=== PATIENT | female | born 1995 | race American Indian/Alaskan Native ===

== ENCOUNTER 2016-06-27 02:25 | Emergency (ER) | payer MEDICAID ==
--- NOTE | 2016-06-27 04:39 | Emergency Department Report ---
ED Back Pain/Injury HPI - General Chief Complaint: Back Pain/Injury Stated Complaint: LOWER BACK PAIN Time Seen by Provider: 06/27/16 04:34 Source: patient, family, EMS Limitations: No Limitations - History of Present Illness Initial Comments: Patient here complaining in of low back pain 4 hours prior to coming to the emergency room she reports that is radiating down to the back of her legs. Patient reports urinary burning frequency or urgency. Denies any nausea or vomiting. Denies any fever or chills. Denies any back trauma. Denies any history of previous back injury. Denies any abdominal pain. Patient states she is 3 months with no STEAM ROOM ATTENDANT follow-up on not taking vitamin. She denies vaginal bleeding . She reports small she reports small amount of vaginal discharge. Denies any concerns for STDs. Pain to lower back is 5 out of 10. No loss of bowel or bladder function. Denies any numbness or tingling. Denies any fever or chills and she says she is able to tolerate fluids. Patient is 4, para 2 miscarriage 1 2 living children MD Complaint: back pain Onset/Timin -: hour(s) Similar Symptoms Previously: No Place: home Radiation: left leg, right leg Severity: moderate Severity scale (0 -10): 5 Quality: aching Consistency: constant Improves With: none Worsens With: none Context: other (patient weight urinary symptoms) Associated Symptoms: other (reports urinary burning, frequency and urgency.). denies: confusion, weakness, chest pain, numbness, difficulty walking, cough, diaphoresis, incontinence, fever/chills, constipation, headaches, abdominal pain , loss of appetite, malaise, nausea/vomiting, rash, seizure, shortness of breath , syncope Treatments Prior to Arrival: other medications - Related Data Previous Rx's Medication Instructions Recorded Last Taken Type Nitrofurantoin [place]/M-Cryst 100 mg PO Q12HR #14 capsule 06/27/16 Unknown Rx [Macrobid CAP] metroNIDAZOLE 0.75% [Vandazole 1 applicator VG QHS #1 tube 06/27/16 Unknown Rx 0.75% VAGINAL] Allergies Allergy/AdvReac Type Severity Reaction Status Date / Time No Known Allergies Allergy Verified 06/27/16 02:45 ED Review of Systems ROS: Stated complaint: LOWER BACK PAIN Other details as noted in HPI Comment: All other systems reviewed and negative Constitutional: denies: chills, fever, malaise ENT: denies: ear pain, throat pain, congestion Respiratory: no symptoms reported Cardiovascular: denies: chest pain, palpitations, edema, syncope Gastrointestinal: denies: abdominal pain, nausea, vomiting, diarrhea Genitourinary: urgency, dysuria, frequency, other (patient reports she is 3 months). denies: hematuria, discharge Musculoskeletal: back pain. denies: joint swelling, arthralgia, myalgia Skin: denies: rash Neurological: denies: headache, weakness, numbness, paresthesias, confusion, abnormal gait, vertigo ED Past Medical Hx - Past Medical History Previous Medical History?: No - Surgical History Past Surgical History?: No - Family History Family history: no significant - Social History Smoking Status: Current Every Day Smoker Substance Use Type: None - Medications Home Medications: Home Medications Medication Instructions Recorded Confirmed Last Taken Type Nitrofurantoin [place]/M-Cryst 100 mg PO Q12HR #14 capsule 06/27/16 Unknown Rx [Macrobid CAP] metroNIDAZOLE 0.75% [Vandazole 1 applicator VG QHS #1 tube 06/27/16 Unknown Rx 0.75% VAGINAL] ED Physical Exam - General Limitations: No Limitations General appearance: alert, in no apparent distress - Head Head exam: Present: atraumatic, normocephalic, normal inspection - Eye Eye exam: Present: normal appearance, PERRL, EOMI. Absent: periorbital swelling , periorbital tenderness Pupils: Present: normal accommodation - ENT ENT exam: Present: normal exam, normal orophraynx, mucous membranes moist, TM's normal bilaterally, normal external ear exam - Neck Neck exam: Present: normal inspection, full ROM. Absent: tenderness, meningismus, lymphadenopathy - Respiratory Respiratory exam: Present: normal lung sounds bilaterally. Absent: respiratory distress, wheezes, rales, rhonchi, stridor, chest wall tenderness - Cardiovascular Cardiovascular Exam: Present: normal rhythm, tachycardia, normal heart sounds - GI/Abdominal GI/Abdominal exam: Present: soft, normal bowel sounds. Absent: distended, tenderness, guarding, rebound, rigid - External exam: Present: normal external exam. Absent: erythema, swelling, lesions, lacerations, ecchymosis, bleeding Speculum exam: Present: vaginal discharge, cervical discharge. Absent: erythema , vaginal bleeding, foreign body, tissue, laceration Bi-manual exam: Present: normal bi-manual exam. Absent: cervical motion tendernes, adnexal tenderness, adnexal mass, uterine enlargement, uterine tenderness - Expanded Exam Expanded Female exam: Absent: vaginal laceration, tissue present in vagina, herpetic lesions, vulvar erythema, vulvar tenderness, foreign body External exam: Present: normal Amniotic fluid: Present: none Speculum exam: Present: cervical OS closed - Extremities Exam Extremities exam: Present: normal inspection, full ROM, normal capillary refill. Absent: tenderness, pedal edema, joint swelling, calf tenderness - Back Exam Back exam: Present: normal inspection, full ROM. Absent: tenderness, CVA tenderness (R), CVA tenderness (L), muscle spasm, paraspinal tenderness, vertebral tenderness, rash noted - Expanded Back Exam Expanded Back exam: Absent: saddle anesthesia Back exam: Negative Straight Leg Raising: Left, Right - Neurological Exam Neurological exam: Present: alert, oriented X3, normal gait - Expanded Neurological Exam Expanded Neurological exam: Absent: innattentive, memory loss-remote event, memory loss- recent event, ataxia, receptive aphasia, expressive aphasia, total aphasia, tremor, protecting the airway Patient oriented to: Present: person, place, time Speech: Present: fluid speech Cranial nerves: EOM's Intact: Normal, Gag Reflex: Normal, Nystagmus: Normal, Facial Sensation: Normal Cerebellar function: Romberg: Normal Upper motor neuron: Pronator Drift: Normal, Sensory Extinction: Normal Sensory exam: Upper Extremity Light Touch: Normal, Upper Extremity Temperature: Normal, Lower Extremity Light Touch: Normal, Lower Extremity Temperature: Normal Motor strength exam: RUE: 5, LUE: 5, RLE: 5, LLE: 5 DTR: bicep (R): 2+, bicep (L): 2+, tricep (R): 2+, tricep (L): 2+, knee (R): 2+ , knee (L): 2+, ankle (R): 2+, ankle (L): 2+ Best Eye Response ([place]): (4) open spontaneously Best Motor Response (Chris): (6) obeys commands Best Verbal Response ([place]): (5) oriented [place] Total: 15 - Psychiatric Psychiatric exam: Present: normal affect, normal mood - Skin Skin exam: Present: warm, dry, normal color. Absent: rash ED Course Vital Signs 06/27/16 02:45 Temperature 98.9 F Pulse Rate 106 H Respiratory 20 Rate Blood Pressure 128/74 [Right] O2 Sat by Pulse 100 Oximetry Vital Signs 06/27/16 06/27/16 02:45 06:32 Temperature 98.9 F 98.6 F Pulse Rate 106 H 98 H Respiratory 20 20 Rate Blood Pressure 128/74 112/58 [Right] O2 Sat by Pulse 100 99 Oximetry - Reevaluation(s) Reevaluation #1: 06/27/16 04:52 Patient given Tylenol 650 mg in emergency room and awaiting lab results. 06/27/16 06:20 Patient received 1 L of normal saline IV and second liter infusing at present. Her sodium is at 129 because she said she is not eating enough due to nausea. Patient here in came back positive for bacterial infection. She was given Rocephin 1 g IV without any adverse reaction. Patient also given Zofran 4 mg IV with her second liter of IV fluid. Ultrasound done at bedside by Dr. Espinosa fetus in utero without any abnormality noted per Dr. Espinosa. Reevaluation #2: 06/27/16 06:49 Patient stable she says she is feeling much better after 2 L of IV fluid - Procedure Description Procedures done: Bedside ultrasound done by Dr. Espinosa. He reported that fetus in usual and no abnormalities seen. ED Medical Decision Making - Lab Data Result diagrams: 06/27/16 04:59 06/27/16 04:59 Lab Results 06/27/16 06/27/16 06/27/16 Range/Units 04:59 04:59 04:59 WBC 5.2 (4.5-11.0) K/mm3 RBC 4.25 (3.65-5.03) M/mm3 Hgb 11.5 (10.1-14.3) gm/dl Hct 34.8 (30.3-42.9) % MCV 82 (79-97) fl MCH 27 L (28-32) pg MCHC 33 (30-34) % RDW 13.7 (13.2-15.2) % Plt Count 130 L (140-440) K/mm3 Lymph % (Auto) 6.1 L (13.4-35.0) % Steele % (Auto) 9.3 H (0.0-7.3) % Eos % (Auto) 0.2 (0.0-4.3) % Baso % (Auto) 0.2 (0.0-1.8) % Lymph # 0.3 L (1.2-5.4) K/mm3 Steele # 0.5 (0.0-0.8) K/mm3 Eos # 0.0 (0.0-0.4) K/mm3 Baso # 0.0 (0.0-0.1) K/mm3 Seg Neutrophils % 84.2 H (40.0-70.0) % Seg Neutrophils # 4.4 (1.8-7.7) K/mm3 Sodium 129 L (137-145) mmol/L Potassium 3.7 (3.6-5.0) mmol/L Chloride 96.2 L (98-107) mmol/L Carbon Dioxide 18 L (22-30) mmol/L Anion Gap 19 mmol/L BUN 5 L (7-17) mg/dL Creatinine 0.5 L (0.7-1.2) mg/dL Estimated GFR > 60 ml/min BUN/Creatinine Ratio 10.00 % Glucose 93 (65-100) mg/dL Calcium 8.6 (8.4-10.2) mg/dL HCG, Quant 80777 H (0-4) mIU/mL Urine Color (Yellow) Urine Turbidity (Clear) Urine pH (5.0-7.0) Ur Specific [place] (1.003-1.030) Urine Protein (Negative) mg/dL Urine Glucose (UA) (Negative) mg/dL Urine Ketones (Negative) mg/dL Urine Blood (Negative) Urine Nitrite (Negative) Urine Bilirubin (Negative) Urine Urobilinogen (<2.0) mg/dL Ur Leukocyte Esterase (Negative) Urine WBC (Auto) (0.0-6.0) /HPF Urine RBC (Auto) (0.0-6.0) /HPF U Epithel Cells (Auto) (0-13.0) /HPF Urine Bacteria (Auto) (Negative) /HPF Amorphous Crystals Hyaline Casts /LPF Urine Mucus /HPF Urine HCG, Qual (Negative) 06/27/16 Range/Units Unknown WBC (4.5-11.0) K/mm3 RBC (3.65-5.03) M/mm3 Hgb (10.1-14.3) gm/dl Hct (30.3-42.9) % MCV (79-97) fl MCH (28-32) pg MCHC (30-34) % RDW (13.2-15.2) % Plt Count (140-440) K/mm3 Lymph % (Auto) (13.4-35.0) % Steele % (Auto) (0.0-7.3) % Eos % (Auto) (0.0-4.3) % Baso % (Auto) (0.0-1.8) % Lymph # (1.2-5.4) K/mm3 Steele # (0.0-0.8) K/mm3 Eos # (0.0-0.4) K/mm3 Baso # (0.0-0.1) K/mm3 Seg Neutrophils % (40.0-70.0) % Seg Neutrophils # (1.8-7.7) K/mm3 Sodium (137-145) mmol/L Potassium (3.6-5.0) mmol/L Chloride (98-107) mmol/L Carbon Dioxide (22-30) mmol/L Anion Gap mmol/L BUN (7-17) mg/dL Creatinine (0.7-1.2) mg/dL Estimated GFR ml/min BUN/Creatinine Ratio % Glucose (65-100) mg/dL Calcium (8.4-10.2) mg/dL HCG, Quant (0-4) mIU/mL Urine Color Yellow (Yellow) Urine Turbidity Slightly-cloudy (Clear) Urine pH 6.0 (5.0-7.0) Ur Specific [place] 1.024 (1.003-1.030) Urine Protein 30 mg/dl (Negative) mg/dL Urine Glucose (UA) Neg (Negative) mg/dL Urine Ketones 20 (Negative) mg/dL Urine Blood Sm (Negative) Urine Nitrite Neg (Negative) Urine Bilirubin Neg (Negative) Urine Urobilinogen 4.0 (<2.0) mg/dL Ur Leukocyte Esterase Mod (Negative) Urine WBC (Auto) 29.0 H (0.0-6.0) /HPF Urine RBC (Auto) 4.0 (0.0-6.0) /HPF U Epithel Cells (Auto) 19.0 H (0-13.0) /HPF Urine Bacteria (Auto) 1+ (Negative) /HPF Amorphous Crystals 1+ Hyaline Casts 2 /LPF Urine Mucus 2+ /HPF Urine HCG, Qual Positive A (Negative) Urine culture pending. Gonorrhea and Chlamydia pending Prep reveals - Radiology Data Radiology results: image reviewed interpreted by me: Bedside ultrasound done by Dr. Espinosa. She reports no abnormality and fetus is in the uterus - Medical Decision Making ED course: Patient urine with positive bacteria, positive and sm amount of blood. She has some epithelial cells more than likely from contamination. Urine culture is pending, pelvic exam done and gonorrhea and chlamydia test is pending. Wet prep revealed revealed less than 20% clues cells, no trichomonas and no yeast. Patient in her urine also showed that she has 20 ketones which suggest mild dehydration.Patient received IV fluid 2 L and emergency room normal saline. Her sodium is 129 and I discussed with him that she's been have to increase her oral intake. I suspect 2 L of IV fluid normal saline will bring sodium and chloride back to normal levels. Patient given Rocephin 1 g IV to cover urinary tract infection. She is also given Zofran 4 mg IV with a second liter of IV fluid. Patient that was also 190 with no signs of bleeding. CBC shows normal white count without any anemia. Patient does not recall having low platelets in the past. I discussed with her her diagnosis and treatment plan and she is in agreement. The patient that she does have a primary care physician or does not have any insurance she needs to follow-up with [facility] walk-in also managed her . I told her that she will need to start on vitamin and start care through STEAM ROOM ATTENDANT. We'll refer her to my STEAM ROOM ATTENDANT who is seed corn manager production. She is no longer having any nausea and able to drink cranberry juice in the room without vomiting. She says she felt better. No further back pain at present. discharged home with prescription for Macrobid And MetroGel applicator Critical care attestation.: If time is entered above; I have spent that time in minutes in the direct care of this critically ill patient, excluding procedure time. ED Disposition Clinical Impression: Hyponatremia, Thrombocytopenia during , Nausea alone, Vaginal discharge, Back pain during , Dysuria, Bacterial vaginosis, Dehydration , mild Qualifiers: Weeks of gestation: unspecified Qualified Code(s): Z33.1 - state, incidental Acute cystitis during Qualifiers: Trimester: first trimester Qualified Code(s): O23.11 - Infections of bladder in , first trimester Disposition: DISCHARGED TO HOME OR SELFCARE Is pt being admited?: No Does the pt Need Aspirin: No Condition: Stable Instructions: Morning Sickness (ED), (ED), Back Pain (ED), Hyponatremia (ED), Urinary Tract Infection in Women (ED), Dysuria (ED), Thrombocytopenia (ED), Bacterial Vaginosis (ED), Dehydration (ED) Additional Instructions: Please follow-up with [facility] for management of. Platelets and follow up for low sodium. [facility] can also manage . Please call this morning to schedule an appointment. You can also call my STEAM ROOM ATTENDANT who is the STEAM ROOM ATTENDANT service seed corn manager production for the hospital today. Call to schedule an appointment. Please ensure that he drink plenty of fluids to prevent dehydration Using also drinking cranberry juice which will help for urinary tract infection and also your low sodium. Take all antibiotic as prescribed for urinary tract infection Prescriptions: metroNIDAZOLE 0.75% [Vandazole 0.75% VAGINAL] 1 applicator VG QHS #1 tube Nitrofurantoin Steele/M-Cryst [Macrobid CAP] 100 mg PO Q12HR #14 capsule Referrals: [facility] [Outside] - 06/28/16 [facility] [Provider Group] - 06/28/16 Forms: Work/School Release Form(ED), Accompanied Note, STI Treatment and Prevention
[2016-06-27] MEDS ORDERED: TYLENOL PO ONE (04:40)
[2016-06-27] MEDS ORDERED: NACL 0.9% 1000 ML 1,000 ML IV ONE ×2 (05:07→06:01)
[2016-06-27 05:14] LABS: Basophils % (Auto) 0.2 % (0.0-1.8); Eosinophils % (Auto) 0.2 % (0.0-4.3); Hematocrit 34.8 % (30.3-42.9); Hemoglobin 11.5 gm/dl (10.1-14.3); Mean Corpuscular HGB Conc 33 % (30-34); Mean Corpuscular Hemoglobin 27 pg (28-32); Mean Corpuscular Volume 82 fl (79-97); Platelet Count 130 K/mm3 (140-440); Red Blood Count 4.25 M/mm3 (3.65-5.03); Red Cell Distribution Width 13.7 % (13.2-15.2); White Blood Count 5.2 K/mm3 (4.5-11.0)
[2016-06-27 05:24] LABS: Bacteria,Urine 1+ /HPF (Negative); Bilirubin,Urine NEG (Negative); Blood,Urine SM (Negative); Ketones,Urine 20 mg/dL (Negative); Leukocyte Esterase,Urine MOD (Negative); Mucus,Urine 2+ /HPF; Nitrite,Urine NEG (Negative)
[2016-06-27 05:28] LABS: Anion Gap 19 mmol/L; Blood Urea Nitrogen 5 mg/dL (7-17); Calcium 8.6 mg/dL (8.4-10.2); Carbon Dioxide 18 mmol/L (22-30); Chloride 96.2 mmol/L (98-107); Glucose 93 mg/dL (65-100); Potassium 3.7 mmol/L (3.6-5.0); Sodium 129 mmol/L (137-145)
[2016-06-27] MEDS ORDERED: ROCEPHIN IV STA (06:01)
[2016-06-27] MEDS ORDERED: ZOFRAN IV ONE (06:02)
[2016-06-27 06:33] VITALS: BP 112/58
== END 2016-06-27 07:29 | disposition home or self-care (01) ==
LOC: ED 02:25
DX: O99.119 Other diseases of the blood and blood-forming organs and certain disorders involving the immune mechanism complicating pregnancy, unspecified trimester (principal); O23.599 Infection of other part of genital tract in pregnancy, unspecified trimester; N76.0 Acute vaginitis; O99.280 Endocrine, nutritional and metabolic diseases complicating pregnancy, unspecified trimester; Z3A.00 Weeks of gestation of pregnancy not specified; E87.1 Hypo-osmolality and hyponatremia; N30.00 Acute cystitis without hematuria; O99.330 Smoking (tobacco) complicating pregnancy, unspecified trimester
CPT/HCPCS: 36415; 80048; 81001; 81025; 84702; 85025; 87086; 87210; 87591; 96361; 96374; 96375; 99284; J0696; J2405; J7030

== ENCOUNTER 2016-12-23 18:11 | Inpatient (IN) | payer MEDICAID ==
[2016-12-23] MEDS ORDERED: BRETHINE IVP PRN (21:52)
[2016-12-23] MEDS ORDERED: ePHEDrine SULFATE IV PRN (21:52)
[2016-12-23] MEDS ORDERED: MINERAL OIL PO PRN (21:52)
[2016-12-23] MEDS ORDERED: BRETHINE SUB-Q PRN (21:52)
[2016-12-23] MEDS ORDERED: STADOL IV PRN (21:52)
[2016-12-23] MEDS ORDERED: SUBLIMAZE IV PRN (21:52)
[2016-12-23] MEDS ORDERED: XYLOCAINE 2% INFILTRATI ONE (21:52)
[2016-12-23] MEDS ORDERED: PITOCin/NS 20 UNIT/1000ML DRIP 20 UNITS/1,000 ML BAG IV SCH (22:00)
[2016-12-23] MEDS ORDERED: PITOCin/NS 30 UNIT/500ML 30 UNITS/500 ML BAG IV SCH ×2 (22:00)
--- NOTE | 2016-12-23 22:00 | History and Physical Report ---
History of Present Illness Date of examination: 12/23/16 Date of admission: 12/23/16 21:37 Chief complaint: 21yo A1 at 40wk EGA admitted in labor with leaking membranes. O pos, Rub Imm, GBS neg. History of present illness: Remainder of H&P from [facility] and confirmed today. 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 Weight (lb): 182 BMI: 28.6 Pre- Weight: 175 BP: 112/ 60 mm Hg Ur. Protein: negative Ur. 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 no EDC Calculations EDC Confirmation: 12/17/2016 Gestational Age: 18 3/7 weeks Past History : 4 Term Births: 2 Living Children: 2 Para: 2 Aborta: 1 Spont. Ab: 1 # 1 Delivery date: 2009 Weeks Gestation: term labor: no Delivery type: Anesthesia type: none Delivery location: [place] Sex: Female weight: 6# Comments: no complications # 2 Delivery date: 2010 Weeks Gestation: term labor: no Delivery type: Anesthesia type: epidural Delivery location: alpha Sex: Male weight: 6# Comments: no complications Past Medical History: Negative Past Medical History Past Surgical History: negative Past Medical History Anesthesia Complications: negative Anemia: negative Autoimmune Disorder: negative Bleeding Disorder: negative Blood Transfusions: negative Breast Disease: negative Diabetes: negative Heart Disease: negative Hypertension: negative Hepatitis/Liver Disease: negative Kidney Disease/UTI: negative Neurologic/Epilepsy/Migraines: negative Phlebitis/Varicosities: negative Psychiatric: negative Pulmonary Disease/Asthma: negative Thyroid Disease: negative Hospitalizations: negative Surgery (Non-director cardiac): negative Abnormal PAP: negative CONOR Exposure: negative Infertility: negative Uterine Anomaly: negative Uterine Surgery (not C/S): negative Other Gynecologic Problems: negative Infection History Hx of STD: chlamydia HIV Risk Eval: no Hepatitis B Risk Eval: low risk Personal hx. of genital herpes: no Partner hx. of genital herpes: no Rash, Viral, or Febrile illness since last LMP? no Varicella/Chicken Pox Status: Unknown Infection History Comments: dx at [facility] 06/27/16 - treated at [facility] Genetic History Congenital Heart Defect: Mom: no Dad: unknown Jinny Disease: Mom: no Dad: unknown Thalassemia Mom: no Dad: unknown Neural Tube Defect Mom: no Dad: unknown Down's Syndrome Mom: no Dad: unknown López-Sachs Mom: no Dad: unknown Sickle Cell Disease/Trait Mom: no Dad: unknown Hemophilia Mom: no Dad: unknown Muscular Dystrophy Mom: no Dad: unknown Cystic Fibrosis Mom: no Dad: unknown [place] Chorea Mom: no Dad: unknown Mental Retardation Mom: no Dad: unknown Fragile X Mom: no Dad: unknown Other Genetic/Chromosomal Disorder Mom: no Dad: unknown Child w/other defect Mom: no Dad: unknown Enviromental Exposures Xray Exposure: no Medication, drug, or alcohol use since LMP: no Chemical/Other Exposure: no Exposure to Cat Liter: no Hx of Parvovirus (Fifth Disease): no Occupational Exposure to Children: none Active Medications (reviewed today): None Current Allergies: No known allergies Laboratory Results Routine Urinalysis Leukocytes: negative Nitrite: negative Urobilinogen: negative Protein: negative Blood: negative Ketone: negative Bilirubin: negative Glucose: negative Urine HCG: positive Review of Systems General Denies fever, chills, sweats, anorexia, fatigue, weakness, malaise, weight loss and sleep disorder. Denies nausea, vomiting, headache, swelling of legs, abdominal pain, vaginal discharge, vaginal bleeding and contractions. Denies vaginal discharge, incontinence, dysuria, hematuria, urinary frequency, amenorrhea, menorrhagia, abnormal vaginal bleeding, pelvic pain, genital sores, decreased libido, painful periods, painful sex, urinary urgency, hot flashes, vaginal dryness, vaginal itching and vaginal odor. CV Denies chest pains, palpitations, syncope, dyspnea on exertion, orthopnea, PND and peripheral edema. Resp Denies cough, dyspnea at rest, excessive sputum, hemoptysis, wheezing and pleurisy. GI Denies nausea, vomiting, diarrhea, constipation, change in bowel habits, abdominal pain, melena, hematochezia, jaundice, gas/bloating, indigestion/ heartburn, dysphagia and odynophagia. Endo Denies cold intolerance, heat intolerance, polydipsia, polyphagia, polyuria and unusual weight change. Breast Denies left breast lump, right breast lump, nipple discharge, bloody discharge from nipple, breast pain, abnormal mammogram and breast enlargement. MS Denies back pain, joint pain, joint swelling, muscle cramps, muscle weakness, stiffness, arthritis, sciatica, restless legs, leg pain at night and leg pain with exertion. Derm Denies rash, itching, dryness and suspicious lesions. Neuro Denies paralysis, paresthesias, headache, seizures, tremors, vertigo, transient blindness, frequent falls, frequent headaches and difficulty walking. Psych Denies depression, anxiety, irritability and mood swings. Eyes Denies blurring, diplopia, irritation, discharge, vision loss, eye pain and photophobia. ENT Denies earache, ear discharge, tinnitus, decreased hearing, nasal congestion, nosebleeds, sore throat and hoarseness. Allergy Denies urticaria, allergic rash, hay fever and recurrent infections. Heme Denies abnormal bruising, bleeding and enlarged lymph nodes. 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 Fundal Ht: 18w Presentation: vertex FHT: + activity: + Flowsheet View for Follow-up Visit Estimated weeks of gestation: 18 3/7 Weight: 182 Blood pressure: 112 / 60 Urine protein: negative Urine glucose: negative Urine nitrite: negative Fundal height: 18w FHR: + position: vertex Infant's Physician: None Past History - Obstetrical History : 4 Medications and Allergies Allergies Allergy/AdvReac Type Severity Reaction Status Date / Time No Known Allergies Allergy Verified 06/27/16 02:45 Home Medications Medication Instructions Recorded Confirmed Last Taken Type Nitrofurantoin [place]/M-Cryst 100 mg PO Q12HR #14 capsule 06/27/16 Unknown Rx [Macrobid CAP] metroNIDAZOLE 0.75% [Vandazole 1 applicator VG QHS #1 tube 06/27/16 Unknown Rx 0.75% VAGINAL] Active Meds: Active Medications Butorphanol Tartrate (Stadol) 2 mg IV Q2H PRN PRN Reason: Pain , Severe (7-10) Ephedrine Sulfate (Ephedrine Sulfate) 10 mg IV Q2M PRN PRN Reason: Hypotension Stop: 12/23/16 21:57 Fentanyl (Sublimaze) 100 mcg IV Q2H PRN PRN Reason: Labor Pain Lactated Ringer's (Lactated Ringers) 1,000 mls @ 125 mls/hr IV DIRECT MOI Oxytocin/Sodium Chloride (Pitocin/Ns 20 Unit/1000ml Drip) 20 units in 1,000 mls @ 125 mls/hr IV DIRECT MOI Lidocaine (Xylocaine 2%) 20 ml INFILTRATI ONCE ONE Stop: 12/23/16 21:53 Mineral Oil (Mineral Oil) 30 ml PO QHS PRN PRN Reason: Constipation - Vital Signs Vital signs: Vital Signs Temp Pulse Resp BP Pulse Ox 98.1 F 80 18 114/75 98 12/23/16 18:35 12/23/16 18:35 12/23/16 18:35 12/23/16 18:35 12/23/16 18:35 Temp Pulse Resp BP Pulse Ox 98.1 F 92 H 18 114/75 98 12/23/16 18:35 12/23/16 20:02 12/23/16 18:35 12/23/16 18:41 12/23/16 20:02 Results All other labs normal.
[2016-12-23] MEDS: LACTATED RINGERS 1,000 ML IV SCH (23:18)
[2016-12-23 23:38] LABS: Hematocrit 31.6 % (30.3-42.9); Hemoglobin 10.3 gm/dl (10.1-14.3); Mean Corpuscular HGB Conc 33 % (30-34); Mean Corpuscular Hemoglobin 26 pg (28-32); Mean Corpuscular Volume 81 fl (79-97); Platelet Count 172 K/mm3 (140-440); Red Blood Count 3.92 M/mm3 (3.65-5.03); Red Cell Distribution Width 13.4 % (13.2-15.2); White Blood Count 9.2 K/mm3 (4.5-11.0)
[2016-12-24] MEDS: LACTATED RINGERS 1,000 ML IV SCH ×2 (00:22→01:37)
[2016-12-24] MEDS ORDERED: ePHEDrine SULFATE ONE (00:56)
[2016-12-24] MEDS ORDERED: ePHEDrine SULFATE IV PRN (01:23)
[2016-12-24] MEDS ORDERED: NARCAN 2 MG/2 ML IV PRN (01:23)
--- NOTE | 2016-12-24 01:23 | Anesthesia Consultation ---
Anesthesia Consult and Med Hx Date of service: 12/24/16 - Airway Anesthetic Teeth Evaluation: Good ROM Head & Neck: Adequate Mental/Hyoid Distance: Adequate Mallampati Class: Class II Intubation Access Assessment: Good - Pulmonary Exam CTA: Yes - Cardiac Exam Cardiac Exam: No Murmur - Pre-Operative Health Status ASA Pre-Surgery Classification: ASA2 Proposed Anesthetic Plan: Epidural - Pulmonary Hx Asthma: No COPD: No Hx Pneumonia: No - Cardiovascular System Hx Hypertension: No - Central Nervous System Hx Seizures: No Hx Psychiatric Problems: No - Endocrine Hx Renal Disease: No Hx End Stage Renal Disease: No Hx Hypothyroidism: No Hx Hyperthyroidism: No - Hematic Hx Anemia: No Hx Sickle Cell Disease: No - Other Systems Hx Alcohol Use: No
[2016-12-24] MEDS ORDERED: fentaNYL-BUPIV 2 MCG/ML-0.125% 200 MCG/100 ML BAG EPIDURAL SCH (02:00)
[2016-12-24] MEDS ORDERED: PHENERGAN PR PRN (04:07)
[2016-12-24] MEDS ORDERED: BENADRYL PO PRN (04:07)
[2016-12-24] MEDS ORDERED: LANSINOH TP PRN (04:07)
[2016-12-24] MEDS ORDERED: ZOFRAN IV PRN (04:07)
[2016-12-24] MEDS ORDERED: MILK OF MAGNESIA PO PRN (04:07)
[2016-12-24] MEDS ORDERED: PHENERGAN PO PRN (04:07)
[2016-12-24] MEDS ORDERED: TUCKS PAD TP PRN (04:07)
[2016-12-24] MEDS ORDERED: DULCOLAX PR PRN (04:07)
[2016-12-24] MEDS ORDERED: TYLENOL PO PRN (04:07)
--- NOTE | 2016-12-24 04:13 | Procedure Note ---
OB Delivery Note - Delivery Date of Delivery: 12/24/16 Surgeon: KLAUDIA REYES Estimated blood loss: 300cc - Vaginal Delivery presentation: vertex Delivery position: OA Intrapartum events: mult.variable deceleratio Delivery induction: none Delivery monitor: external FHT, external uterine, internal FHT, internal uterine Route of delivery: Delivery placenta: spontaneous Delivery cord: 3 umbilical vessels Episiotomy: none Delivery laceration: none Anesthesia: epidural - Infant A at 1 minute: 8 (6#8oz) at 5 minutes: 9 Infant Gender: Male
[2016-12-24] MEDS ORDERED: SODIUM CHLORIDE FLUSH SYRINGE 10 ML IV PRN (05:00)
[2016-12-24] MEDS: MOTRIN PO SCH ×4 (06:40→23:42)
[2016-12-24 17:01] LABS: Hematocrit 28.3 % (30.3-42.9); Hemoglobin 9.4 gm/dl (10.1-14.3)
[2016-12-25] MEDS: MOTRIN PO SCH ×2 (05:29→11:56)
[2016-12-25] MEDS ORDERED: BOOSTRIX IM ONE (06:00)
--- NOTE | 2016-12-25 07:14 | Discharge Summary ---
Providers - Providers Date of Admission: 12/23/16 21:37 Date of discharge: 12/25/16 (pt desires d/c Depo for BC) Attending physician: KLAUDIA REYES Primary care physician: KLAUDIA REYES Hospitalization Reason for admission: active labor Delivery: Episiotomy: none Laceration: none Incision: normal, dry, intact Other procedures: none complications: none Discharge diagnosis: IUP at term delivered [place] baby: male Hospital course: uncomplicated vaginal delivery Pt w/o complaint VSS FF below umb Lochia small perineum intact H&H 12/19 drop r/ t blood loss from delivery No sx of anemia. Doing well s/p vag delivery P: d/c today with instructions RTO 1 week for circ and 4 weeks for PP care. RX provided Condition at discharge: Good Disposition: DC-01 TO HOME OR SELFCARE - Discharge Diagnoses (1) Spontaneous vaginal delivery Status: Acute Comment: rto 4 weeks for PP care Plan - Discharge Medications Prescriptions: Ibuprofen [Motrin 600 MG tab] 600 mg PO Q8H PRN #30 tablet PRN Reason: Pain Lidocain2.5%/Prilocai2.5% [Emla] 5 gm TP 1XW #1 tube - Provider Discharge Summary Activity: routine, no sex for 6 weeks, no heavy lifting 4 weeks, no strenuous exercise Diet: routine Instructions: routine Additional instructions: [] Smoking cessation referral if applicable(refer to patient education folder for contact #) [] Refer to [facility] Booklet Call your doctor immediately for: * Fever > 100.5 * Heavy vaginal bleeding ( >1 pad per hour) * Severe persistent headache * Shortness of breath * Reddened, hot, painful area to leg or breast * Drainage or odor from incision. * Keep incision clean and dry at all times and follow doctor's instructions regarding bathing/showering - Follow up plan Follow up: KLAUDIA REYES MD [Primary Care Provider] - 7 Days (Congratulations! Please call [phone] to schedule your visit in 4 weeks and your son's circumcision in 1 week. Bring the EMLA cream with you to his visit. Take medications as prescribed. Call with concerns.)
[2016-12-25] MEDS ORDERED: DEPO-PROVERA (CONTRACEPTION) IM NR (08:00)
--- NOTE | 2016-12-25 10:06 | Progress Note ---
Subjective Date of service: 12/25/16 Interval history: 1st day after normal vaginal delivery Patient is in the bed, comfortable. pain is well controlled with pain meds. Ambulated well, no residual neurological deficit. No anesthesia complications Objective - Constitutional Vitals: Vital Signs - 12hr 12/25/16 00:30 Temperature 98.2 F Pulse Rate 78 Respiratory 18 Rate Blood Pressure 116/63 [Left] - Labs CBC & Chem 7: 12/24/16 16:09 Labs: Abnormal lab results 12/24/16 Range/Units 16:09 Hgb 9.4 L (10.1-14.3) gm/dl Hct 28.3 L (30.3-42.9) %
[2016-12-25 10:55] VITALS: BP 118/66
[2016-12-25] MEDS ORDERED: Fluarix Quad 2017-2018(36 MOS+) IM ONE (15:00)
== END 2016-12-25 16:23 | disposition home or self-care (01) | DRG 775 ==
LOC: TRG 18:11 → LD 21:37 → TRG 21:37 → OB 12-24 05:58
PROVIDERS: ADMIT Obstetrics & Gynecology; ATTEND Obstetrics & Gynecology
PROC: 10E0XZZ Delivery of Products of Conception, External Approach (ICD-10-PCS; principal; 2016-12-24)
PROC: 3E0234Z Introduction of Serum, Toxoid and Vaccine into Muscle, Percutaneous Approach (ICD-10-PCS; 2016-12-24)
PROC: 3E0R3BZ Introduction of Anesthetic Agent into Spinal Canal, Percutaneous Approach (ICD-10-PCS; 2016-12-24)
PROC: 00HU33Z Insertion of Infusion Device into Spinal Canal, Percutaneous Approach (ICD-10-PCS; 2016-12-24)
DX: O76 Abnormality in fetal heart rate and rhythm complicating labor and delivery (principal); Z3A.40 40 weeks gestation of pregnancy; Z37.0 Single live birth; Z23 Encounter for immunization
CPT/HCPCS: 36415; 85014; 85018; 85027; 86592; 86850; 86900; 86901; 90471; 90686; 90715; J1050; J2590; J7120

== ENCOUNTER 2019-04-19 15:32 | Emergency (ER) | payer MEDICAID ==
[2019-04-19 16:38] VITALS: BP 125/71
--- NOTE | 2019-04-19 17:53 | Emergency Department Report ---
Blank Doc - Documentation Documentation: 24-year-old female that presents with abdominal pain and nausea. This initial assessment/diagnostic orders/clinical plan/treatment(s) is/are subject to change based on patient's health status, clinical progression and re- assessment by fellow clinical providers in the ED. Further treatment and workup at subsequent clinical providers discretion. Patient/guardians urged not to elope from the ED as their condition may be serious if not clinically assessed and managed. Initial orders include: 1- Patient sent to [facility] for further evaluation and treatment 2-labs 3- UA
[2019-04-19 18:12] LABS: Basophils % (Auto) 0.5 % (0.0-1.8); Eosinophils # (Auto) 0.1 K/mm3 (0.0-0.4); Eosinophils % (Auto) 1.3 % (0.0-4.3); Hematocrit 37.4 % (30.3-42.9); Hemoglobin 12.2 gm/dl (10.1-14.3); Lymphocytes # (Auto) 2.6 K/mm3 (1.2-5.4); Lymphocytes % (Auto) 38.8 % (13.4-35.0); Mean Corpuscular HGB Conc 33 % (30-34); Mean Corpuscular Volume 84 fl (79-97); Monocytes # (Auto) 0.5 K/mm3 (0.0-0.8); Monocytes % (Auto) 6.9 % (0.0-7.3); Platelet Count 236 K/mm3 (140-440); Red Blood Count 4.46 M/mm3 (3.65-5.03)
[2019-04-19 18:26] LABS: Alanine Aminotransferase 9 units/L (7-56); Albumin 4.3 g/dL (3.9-5); BUN/Creatinine Ratio 11; Blood Urea Nitrogen 8 mg/dL (7-17); Calcium 9.3 mg/dL (8.4-10.2); Hemolysis Index 2
[2019-04-19 18:53] LABS: Bilirubin,Urine NEG (Negative); Blood,Urine NEG (Negative); Color,Urine Yellow (Yellow); Protein,Urine <15 mg/dL mg/dL (Negative); Urobilinogen,Urine < 2.0 mg/dL (<2.0)
[2019-04-19] MEDS ORDERED: AZITHROMYCIN 250 MG TAB PO ONE (21:30)
[2019-04-19] MEDS ORDERED: LIDOCAINE-MPF (1%) 10 MG/1 ML VIAL 5 ML INFILTRATI ONE (21:30)
--- NOTE | 2019-04-19 21:36 | Emergency Department Report ---
ED Female HPI - General Chief complaint: Abdominal Pain Stated complaint: ABD PAIN HEADACHE Time Seen by Provider: 04/19/19 17:52 Source: patient Mode of arrival: Ambulatory Limitations: No Limitations - History of Present Illness Initial comments: Patient is a 24-year-old -[place] female who presents for vaginal discharge white, thick , malodorous x 3 days. Patient denies nausea vomiting denies pelvic pain there is mild back pain and cramping. Last menstrual cycle one week ago. Patient states concern for STD. There are no exacerbating or relieving factors. MD Complaint: vaginal discharge, possible STD Onset/Timin -: days(s) Location: suprapubic Radiation: non-radiating Severity: moderate Severity scale (0 -10): 4 Quality: cramping, burning Consistency: constant Improves with: none Worsens with: none Are you Now?: No Last Menstrual Period: 04/12/19 EDC: 01/17/20 Associated Symptoms: vaginal discharge - Related Data Sexually active: Yes Previous Rx's Medication Instructions Recorded Last Taken Type Nitrofurantoin [place]/M-Cryst 100 mg PO Q12HR #14 capsule 06/27/16 Unknown Rx [Macrobid CAP] metroNIDAZOLE 0.75% [Vandazole 1 applicator VG QHS #1 tube 06/27/16 Unknown Rx 0.75% VAGINAL] Ibuprofen [Motrin 600 MG tab] 600 mg PO Q8H PRN #30 tablet 12/24/16 Unknown Rx Lidocain2.5%/Prilocai2.5% [Emla] 5 gm TP 1XW #1 tube 12/24/16 Unknown Rx metroNIDAZOLE [Flagyl] 500 mg PO BID 10 Days #20 tab 04/19/19 Unknown Rx Allergies Allergy/AdvReac Type Severity Reaction Status Date / Time No Known Allergies Allergy Verified 06/27/16 02:45 ED Review of Systems ROS: Stated complaint: ABD PAIN HEADACHE Other details as noted in HPI Constitutional: denies: chills, fever Eyes: denies: eye pain, eye discharge, vision change ENT: denies: ear pain, throat pain Respiratory: denies: cough, shortness of breath, wheezing Cardiovascular: denies: chest pain, palpitations Endocrine: no symptoms reported Gastrointestinal: abdominal pain, nausea. denies: vomiting, diarrhea, constipation, hematemesis, melena Genitourinary: discharge, dyspareunia. denies: urgency, dysuria, frequency, hematuria Musculoskeletal: back pain Skin: denies: rash, lesions Neurological: denies: headache, weakness, paresthesias Psychiatric: denies: anxiety, depression Hematological/Lymphatic: as per HPI ED Past Medical Hx - Past Medical History Previous Medical History?: No Hx Hypertension: No Hx Congestive Heart Failure: No Hx Diabetes: No Hx Deep Vein Thrombosis: No Hx Renal Disease: No Hx Sickle Cell Disease: No Hx Seizures: No Hx Asthma: No Hx COPD: No Hx HIV: No - Surgical History Past Surgical History?: No - Social History Smoking Status: Never Smoker Substance Use Type: None - Medications Home Medications: Home Medications Medication Instructions Recorded Confirmed Last Taken Type Nitrofurantoin [place]/M-Cryst 100 mg PO Q12HR #14 capsule 06/27/16 12/24/16 Unknown Rx [Macrobid CAP] metroNIDAZOLE 0.75% [Vandazole 1 applicator VG QHS #1 tube 06/27/16 12/24/16 Unknown Rx 0.75% VAGINAL] Ibuprofen [Motrin 600 MG tab] 600 mg PO Q8H PRN #30 tablet 12/24/16 Unknown Rx Lidocain2.5%/Prilocai2.5% [Emla] 5 gm TP 1XW #1 tube 12/24/16 Unknown Rx metroNIDAZOLE [Flagyl] 500 mg PO BID 10 Days #20 tab 04/19/19 Unknown Rx ED Physical Exam - General Limitations: No Limitations General appearance: alert, in no apparent distress - Head Head exam: Present: atraumatic, normocephalic - Eye Eye exam: Present: normal appearance, PERRL, EOMI Pupils: Present: normal accommodation - ENT ENT exam: Present: mucous membranes moist - Neck Neck exam: Present: normal inspection, full ROM. Absent: tenderness - Respiratory Respiratory exam: Present: normal lung sounds bilaterally. Absent: respiratory distress, wheezes, stridor, chest wall tenderness - Cardiovascular Cardiovascular Exam: Present: regular rate, normal rhythm, normal heart sounds. Absent: systolic murmur, diastolic murmur, rubs, gallop - GI/Abdominal GI/Abdominal exam: Present: soft, normal bowel sounds. Absent: distended, te nderness, bruit, hernia - Rectal Rectal exam: Present: deferred - External exam: Present: normal external exam Speculum exam: Present: erythema, vaginal discharge (white thick), cervical discharge (clear ), vaginal bleeding (scant cervical ). Absent: foreign body, tissue, laceration Bi-manual exam: Present: other (strawberry cervix ). Absent: cervical motion tendernes - Extremities Exam Extremities exam: Present: normal inspection, full ROM. Absent: tenderness - Back Exam Back exam: Present: normal inspection, full ROM. Absent: tenderness, CVA tenderness (R), CVA tenderness (L) - Neurological Exam Neurological exam: Present: alert, oriented X3, CN II-XII intact, normal gait - Psychiatric Psychiatric exam: Present: normal affect - Skin Skin exam: Present: warm, dry, intact, normal color. Absent: rash ED Course Vital Signs 04/19/19 16:25 Temperature 98.2 F Pulse Rate 71 Respiratory 16 Rate Blood Pressure 125/71 O2 Sat by Pulse 100 Oximetry ED Medical Decision Making - Lab Data Result diagrams: 04/19/19 18:01 04/19/19 18:01 - Medical Decision Making Plan treatment for STD Rocephin and azithromycin given in ED with easy prescription for Flagyl patient will follow up with health department for HIV and HSV screening. Patient with Gracie partner seek treatment. patient verbalizes agreement and understanding of discharge plan DC'd home in stable condition at this time. Critical care attestation.: If time is entered above; I have spent that time in minutes in the direct care of this critically ill patient, excluding procedure time. ED Disposition Clinical Impression: Bacterial vaginosis, Exposure to STD Vaginitis Qualifiers: Chronicity: acute Qualified Code(s): N76.0 - Acute vaginitis Disposition: DC- TO HOME OR SELFCARE Is pt being admited?: No Does the pt Need Aspirin: No Condition: Stable Instructions: Bacterial Vaginosis (ED), Vaginitis (ED) Prescriptions: metroNIDAZOLE [Flagyl] 500 mg PO BID 10 Days #20 tab Referrals: TARYN FAN MD [Primary Care Provider] - 3-5 Days Forms: STI Treatment and Prevention Time of Disposition: 21:40
== END 2019-04-19 22:00 | disposition home or self-care (01) ==
LOC: ED 15:32
DX: N76.0 Acute vaginitis (principal); B96.89 Other specified bacterial agents as the cause of diseases classified elsewhere; Z20.2 Contact with and (suspected) exposure to infections with a predominantly sexual mode of transmission; Z79.899 Other long term (current) drug therapy
CPT/HCPCS: 36415; 80053; 81001; 83690; 84703; 85025; 87086; 87210; 87591; 96372; 99284; J0696; 87076; 87186

== ENCOUNTER 2021-05-28 20:13 | Emergency (ER) | payer MEDICAID ==
[2021-05-28 21:55] VITALS: BP 142/77
--- NOTE | 2021-05-28 23:19 | Emergency Department Report ---
ED Abdominal Pain HPI - General Chief Complaint: Abdominal Pain Stated Complaint: CRAMPING/BACK PAIN Time Seen by Provider: 05/28/21 23:04 Source: patient Mode of arrival: Ambulatory Limitations: No Limitations - History of Present Illness Initial Comments: Patient is 26 years old female with no significant past medical history. Patient presented to the ER complaining of suprapubic abdominal pain started 2 days ago. Patient described her pain as cramping with no radiation. She denied any fever or chills. No nausea or vomiting. MD Complaint: abdominal pain -: Last night Location: suprapubic Radiation: none Migration to: no migration Severity scale (0 -10): 3 Quality: cramping Consistency: intermittent Associated Symptoms: denies other symptoms - Related Data Previous Rx's Medication Instructions Recorded Last Taken Type Nitrofurantoin [place]/M-Cryst 100 mg PO Q12HR #14 capsule 06/27/16 Unknown Rx [Macrobid CAP] metroNIDAZOLE 0.75% [Vandazole 1 applicator VG QHS #1 tube 06/27/16 Unknown Rx 0.75% VAGINAL] Ibuprofen [Motrin 600 MG tab] 600 mg PO Q8H PRN #30 tablet 12/24/16 Unknown Rx Lidocain2.5%/Prilocai2.5% [Emla] 5 gm TP 1XW #1 tube 12/24/16 Unknown Rx metroNIDAZOLE [Flagyl] 500 mg PO BID 10 Days #20 tab 04/19/19 Unknown Rx Allergies Allergy/AdvReac Type Severity Reaction Status Date / Time No Known Allergies Allergy Verified 06/27/16 02:45 ED Review of Systems ROS: Stated complaint: CRAMPING/BACK PAIN Other details as noted in HPI Comment: All other systems reviewed and negative Constitutional: denies: chills, fever Respiratory: denies: cough, shortness of breath, SOB with exertion Cardiovascular: denies: chest pain, palpitations Gastrointestinal: abdominal pain. denies: nausea, vomiting, diarrhea, constipation, hematemesis, melena, hematochezia Genitourinary: abnormal menses Musculoskeletal: denies: back pain Neurological: denies: headache, weakness, numbness, paresthesias, confusion ED Past Medical Hx - Past Medical History Previous Medical History?: Yes Hx Hypertension: No Hx Congestive Heart Failure: No Hx Diabetes: No Hx Deep Vein Thrombosis: No Hx Renal Disease: No Hx Sickle Cell Disease: No Hx Seizures: No Hx Asthma: No Hx COPD: No Hx HIV: No - Surgical History Past Surgical History?: Yes Additional Surgical History: - Social History Smoking Status: Never Smoker Substance Use Type: None - Medications Home Medications: Home Medications Medication Instructions Recorded Confirmed Last Taken Type Nitrofurantoin [place]/M-Cryst 100 mg PO Q12HR #14 capsule 06/27/16 12/24/16 Unknown Rx [Macrobid CAP] metroNIDAZOLE 0.75% [Vandazole 1 applicator VG QHS #1 tube 06/27/16 12/24/16 Unknown Rx 0.75% VAGINAL] Ibuprofen [Motrin 600 MG tab] 600 mg PO Q8H PRN #30 tablet 12/24/16 Unknown Rx Lidocain2.5%/Prilocai2.5% [Emla] 5 gm TP 1XW #1 tube 12/24/16 Unknown Rx metroNIDAZOLE [Flagyl] 500 mg PO BID 10 Days #20 tab 04/19/19 Unknown Rx ED Physical Exam - General Limitations: No Limitations General appearance: alert, in no apparent distress - Head Head exam: Present: atraumatic, normocephalic, normal inspection - Eye Eye exam: Present: normal appearance - ENT ENT exam: Present: normal exam, normal orophraynx, mucous membranes moist - Neck Neck exam: Present: normal inspection, full ROM. Absent: tenderness, meningismus - Respiratory Respiratory exam: Present: normal lung sounds bilaterally - Cardiovascular Cardiovascular Exam: Present: regular rate, normal rhythm, normal heart sounds - GI/Abdominal GI/Abdominal exam: Present: soft, normal bowel sounds. Absent: distended, tenderness, guarding, rebound, rigid, organomegaly, mass, bruit, pulsatile mass, hernia - Extremities Exam Extremities exam: Present: normal inspection, full ROM, normal capillary refill. Absent: tenderness, pedal edema, joint swelling, calf tenderness - Back Exam Back exam: Present: normal inspection, full ROM. Absent: CVA tenderness (R), CVA tenderness (L) - Neurological Exam Neurological exam: Present: alert, oriented X3, CN II-XII intact, normal gait, reflexes normal. Absent: motor sensory deficit - Psychiatric Psychiatric exam: Present: normal mood - Skin Skin exam: Present: warm, intact, normal color ED Course Vital Signs 05/28/21 21:47 Temperature 98.1 F Pulse Rate 74 Respiratory 17 Rate Blood Pressure 142/77 [Right] O2 Sat by Pulse 100 Oximetry ED Medical Decision Making - Lab Data Result diagrams: 05/28/21 23:02 05/28/21 23:02 - Medical Decision Making Patient is 26 years old female with no significant past medical history. Patient presented to the ER complaining of suprapubic abdominal pain started 2 days ago. Patient described her pain as cramping with no radiation. She denied any fever or chills. No nausea or vomiting. Labs reviewed and is unremarkable including urinalysis and test. Patient remained stable with stable vital sign. Abdomen is soft and nontender no clinical or laboratory evidence of acute abdomen. Patient advised to follow- up with her primary care physician in the next 2 to 3 days and to return to the ER if she develop any new symptoms. Critical care attestation.: If time is entered above; I have spent that time in minutes in the direct care of this critically ill patient, excluding procedure time. ED Disposition Clinical Impression: Acute abdominal pain Disposition: 01 HOME / SELF CARE / HOMELESS Is pt being admited?: No Condition: Stable Instructions: Abdominal Pain (ED), Abdominal Pain, Adult, [id number] Referrals: PRIMARY CARE, [Primary Care Provider] - 3-5 Days
[2021-05-28 23:28] LABS: Basophils % (Auto) 0.6 % (0.0-1.8); Eosinophils # (Auto) 0.1 K/mm3 (0.0-0.4); Eosinophils % (Auto) 1.5 % (0.0-4.3); Hematocrit 35.8 % (30.3-42.9); Hemoglobin 12.3 gm/dl (10.1-14.3); Lymphocytes % (Auto) 36.4 % (13.4-35.0); Mean Corpuscular HGB Conc 34 % (30-34); Mean Corpuscular Volume 87 fl (79-97); Monocytes # (Auto) 0.5 K/mm3 (0.0-0.8); Monocytes % (Auto) 8.9 % (0.0-7.3); Platelet Count 190 K/mm3 (140-440); Red Blood Count 4.13 M/mm3 (3.65-5.03); Red Cell Distribution Width 14.4 % (13.2-15.2)
[2021-05-28 23:41] LABS: Bilirubin,Urine NEG (Negative); Blood,Urine NEG (Negative); Color,Urine Yellow (Yellow); Mucus,Urine FEW /HPF; Protein,Urine <15 mg/dL mg/dL (Negative); Urobilinogen,Urine < 2.0 mg/dL (<2.0)
[2021-05-28 23:50] LABS: Alanine Aminotransferase 13 units/L (7-56); Blood Urea Nitrogen 9 mg/dL (7-17); Calcium 9.3 mg/dL (8.4-10.2); Hemolysis Index 27
[2021-05-29 00:01] LABS: RBC,Urine < 1.0 /HPF (0.0-6.0)
[2021-05-29 00:03] LABS: BUN/Creatinine Ratio 15
== END 2021-05-29 00:15 | disposition home or self-care (01) ==
LOC: ED 20:13
DX: R10.9 Unspecified abdominal pain (principal)
CPT/HCPCS: 36415; 80053; 81001; 83690; 84702; 85025; 99283